=== PATIENT | male | born 1950 | race Hispanic/Latino ===

== ENCOUNTER → 2017-12-02 | Outpatient (CLI) | payer MEDICARE, OTHER | END | disposition home or self-care (01) | LOC: RAH 12:43 | PROVIDERS: ATTEND Internal Medicine | DX: I82.401 Acute embolism and thrombosis of unspecified deep veins of right lower extremity (principal); R22.41 Localized swelling, mass and lump, right lower limb | CPT/HCPCS: 93971 ==

== ENCOUNTER → 2020-05-17 | Outpatient (CLI) | payer OTHER | END | disposition home or self-care (01) | LOC: RAH 14:02 | PROVIDERS: ATTEND Internal Medicine | DX: M79.89 Other specified soft tissue disorders (principal); I87.2 Venous insufficiency (chronic) (peripheral); L03.119 Cellulitis of unspecified part of limb | CPT/HCPCS: 93971 ==

== ENCOUNTER → 2023-04-24 | Outpatient (CLI) | payer OTHER | END | disposition home or self-care (01) | LOC: RAH 11:47 | PROVIDERS: ATTEND Internal Medicine | DX: I50.22 Chronic systolic (congestive) heart failure (principal); M47.815 Spondylosis without myelopathy or radiculopathy, thoracolumbar region | CPT/HCPCS: 71046 ==

== ENCOUNTER 2023-07-28 06:15 | Day surgery (SDC) | payer OTHER ==
[2023-07-23 11:54] VITALS: BP 134/72; PULSE 57; RESP 16
[2023-07-23 11:58] LABS: BASOPHILS # (AUTO) 0.02 K/uL (0.00-0.20); BASOPHILS % (AUTO) 0.2 % (0.0-5.0); EOSINOPHILS # (AUTO) 0.45 K/uL (0.00-0.70); EOSINOPHILS % (AUTO) 5.5 % (0.0-8.0); HEMATOCRIT 44.9 % (42-54); IMMATURE GRANULOCYTE ABSOLUTE 0.03 K/uL (0-1); LYMPHOCYTES # (AUTO) 1.4 K/uL (1.0-4.8); LYMPHOCYTES % (AUTO) 17.6 % (21.0-51.0); MEAN CORPUSCULAR VOLUME 87.9 fL (79-99); MONOCYTES # (AUTO) 0.6 K/uL (0.1-1.0); MONOCYTES % (AUTO) 7.4 % (3.0-13.0); NEUTROPHILS # (AUTO) 5.7 K/uL (1.8-7.7); NEUTROPHILS % (AUTO) 68.9 % (40.0-77.0); PLATELET COUNT (AUTO) 193 K/uL (130-400); RED BLOOD CELL COUNT(AUTO) 5.11 MIL/uL (4.50-6.20); RED CELL DISTRIBUTION WIDTH 12.8 % (11.0-15.5); WHITE BLOOD COUNT (AUTO) 8.2 K/uL (4.8-10.8)
[2023-07-23 12:12] LABS: INR 0.95 (0.85-1.15); PROTHROMBIN TIME 11.3 SEC (9.6-11.6)
[2023-07-23 12:13] LABS: CREATININE 0.9 mg/dL (0.5-1.3); POTASSIUM 4.4 mmol/L (3.5-5.1)
[~2023-07-28] VITALS: Ht 175.3 cm; Wt 123.5 kg
[2023-07-28] VITALS (21 sets, daily range): BP systolic 118–151; BP diastolic 62–87; PULSE 53–86; RESP 12–22
[~2023-07-28 06:15] MED LIST: TAMS-1 PO
[2023-07-28] MEDS ORDERED: LIDOCAINE HCL-MPF 1% 5ML AMP IJ ONE (07:20)
[2023-07-28] MEDS ORDERED: PROPOFOL 10 MG/ML 20ML VIAL IV ONE (07:21)
[2023-07-28] MEDS ORDERED: MIDAZOLAM HCL 1 MG/ML 2ML VIAL ONE (07:21)
[2023-07-28] MEDS ORDERED: FENTANYL CITRATE PF 50 MCG/1 ML 5ML AMP IV ONE (07:21)
[2023-07-28] MEDS ORDERED: ROCURONIUM BROMIDE 10MG/1ML 5ML VL ONE (07:21)
[2023-07-28] MEDS ORDERED: ROPIVACAINE 0.5% 5MG/ML 30ML ONE (07:28)
[2023-07-28] MEDS: LACTATED RINGERS 1000ML 1,000 ML IV ONE (07:47)
[2023-07-28] MEDS: CEFAZOLIN SODIUM 1 GM VIAL ONE (07:47)
[2023-07-28] MEDS: CEFAZOLIN SODIUM 2 GM VIAL ONE (07:47)
[2023-07-28] MEDS ORDERED: DEXAMETHASONE SOD PHOSPHATE 4 MG/ML 1ML VIAL ONE (08:16)
[2023-07-28] MEDS ORDERED: ONDANSETRON 4MG INJ ONE (08:17)
[2023-07-28] MEDS ORDERED: NEOSTIGMINE METHYLSULFATE 1MG/ML IV ONE (08:37)
[2023-07-28] MEDS ORDERED: GLYCOPYRROLATE 0.2 MG/ML 5 ML VIAL ONE (08:37)
[2023-07-28] MEDS ORDERED: DEXAMETHASONE SOD PHOSPHATE 10MG/ML 1ML VIAL ONE (08:39)
[2023-07-28] MEDS ORDERED: TRAM50TA4 PO (08:53)
[2023-07-28] MEDS ORDERED: GABA-529 PO (08:53)
[2023-07-28] MEDS ORDERED: DOCU-116 PO (08:53)
[2023-07-28] MEDS ORDERED: METH-662 PO (08:53)
[2023-07-28] MEDS: IPRATROPIUM/ALBUTEROL SULFATE 3 ML SOLUTION IH ONE (09:44)
== END 2023-07-28 12:30 | disposition home or self-care (01) ==
LOC: DAHIP 06:15 → DAH 06:15 → UNDOADMIN 06:15 → DAH 12:30
PROVIDERS: ATTEND Surgery
DX: K43.6 Other and unspecified ventral hernia with obstruction, without gangrene (principal); Z80.9 Family history of malignant neoplasm, unspecified
CPT/HCPCS: 80048; 85025; 85610; 36415; 49594; 64488; 94640; A6260; J1100 ×2; A4663; J7030 ×2; J7120; J3010; J0690 ×2; J3490 ×3; J2250; J2704; J2405; J2710; J2795; A4649 ×2; A4930 ×2; C1781; A4215; A4223; A4222; A4221; A4600

== ENCOUNTER → 2024-11-04 | Outpatient (CLI) | payer OTHER ==
[~2024-11-04] MED LIST changes: +DOCU-116 PO; +GABA-529 PO; +METH-662 PO; -TAMS-1 PO; +TAMS-55 PO; +TRAM50TA4 PO
[2024-11-04] MEDS: REGADENOSON 0.4 MG/5 ML PF SYG IVP ONE (11:01)
--- NOTE | 2024-11-05 08:33 | HMCSR ---
APPROVED REPORT Height: 5 ft 9in Weight: 264 lbs TEST INDICATIONS CAD The imaging protocol used to acquire images was Rest Tc-99m/stress Tc-99m 1 day Consent: The procedure was explained and understood by the patient. Informerd consent was witnessed Magdalena Dolan RN First, low dose rest was performed then high dose stress. RESTING DATA: The resting ekg shows: NSR Rest SPECT myocardial perfusion imaging was performed in supine position minutes following the intra venous injection of 11 mCi of Tc-99 Sestamibi. Time of rest injection: Date: 11/04/2024 PHARMACOLOGIC STRESS: Pharmacologic stress test was performed by injecting regadenoson 0.4 mg IV push followed by the intra venous injection of 30 mCi of Tc-99 Sestamibi. Time of stress injection: Date: 11/04/2024 Heart Rate at time of stress injection: 47 bpm. The images were gated to evaluate regional wall motion and calculate left ventricular ejection fracti on. STRESS DETAILS Reason for Termination: Infusion complete Stress Symptoms: Dyspnea Max HR Achieved: 85 bpm % of APMHR Achieved: 68 Max Blood Pressure: 138/62 mmHg Stress ECG: NSR Study quality was fair. Lung uptake was Normal. Artifact: increased GI uptake LEFT VENTRICLE Size: The left ventricular size is normal. Systolic Function:The left ventricular systolic function is normal. Wall Motion: No regional wall motion abnormalities noted. The left ventricular ejection fraction was calculated to be 68%.TID = 0.91. LV PERFUSION The rest and stress images show normal perfusion. IMPRESSION Normal pharmacologic nuclear stress test. Global LV Function: Normal Stress ECG Summary: Normal LV Perfusion Summary: Normal Conclusion Normal pharmacologic nuclear stress test. Global LV Function: Normal Stress ECG Summary: Normal LV Perfusion Summary: Normal Low risk scan
== END | disposition home or self-care (01) ==
LOC: RAH 08:44
PROVIDERS: ATTEND Internal Medicine
DX: I25.10 Atherosclerotic heart disease of native coronary artery without angina pectoris (principal)
CPT/HCPCS: 78452; 93017; J2785; A9500 ×2